=== PATIENT | male | born 1975 | race Caucasian/White ===

== ENCOUNTER 2021-07-30 15:05 | Emergency (ER) | payer OTHER ==
[~2021-07-30] VITALS: Ht 180.3 cm; Wt 120.2 kg
[~2021-07-30 15:05] MED LIST: ALBUAER3 IN; ESCI-34 PO; ESZO1TAB21 PO
[2021-07-30 15:12] VITALS: BP 159/81
[2021-07-30] MEDS ORDERED: SODIUM CHLORIDE 0.9% 1,000 ML IVB ONE (15:30)
[2021-07-30] MEDS ORDERED: ASPirin 81 mg TAB PO ONE (15:30)
[2021-07-30 16:07] LABS: Basophils # (auto) 0.1 10 ^3/uL (0-0.2); Basophils % (auto) 1.3 % (0.0-2.0); Eosinophils # (auto) 0.3 10 ^3/uL (0-0.8); Eosinophils % (auto) 3.2 % (0.0-7.0); Hematocrit 45.4 % (41.0-53.0); Hemoglobin 15.3 g/dL (13.5-17.5); Lymphocytes % (auto) 31.3 % (10.0-50.0); Mean Corpuscular Hemoglobin 30.4 pg (28.0-32.0); Mean Corpuscular Hgb Conc. 33.7 g/dL (32.0-36.0); Mean Corpuscular Volume 90.3 fL (80.0-100.0); Monocytes # (auto) 0.8 10 ^3/uL (0-1.3); Monocytes % (auto) 8.6 % (0.0-12.0); Neutrophils # (auto) 5.4 10 ^3/uL (1.6-8.6); Neutrophils % (auto) 55.6 % (37.0-80.0); Nucleated Red Blood Cells % 0.1 %; Red Blood Cells 5.03 10^6/uL (4.5-5.90); Red Cell Distribution Width 14.4 % (11.8-14.3); White Blood Cell 9.7 10^3/uL (4.4-10.8)
[2021-07-30 16:30] LABS: Albumin 4.1 g/dL (3.4-5.0); BUN/Creatinine Ratio 11.1; Calcium 9.3 mg/dL (8.5-10.1); Magnesium 2.4 mg/dL (1.6-2.6); Potassium 3.8 mmol/L (3.5-5.1)
[2021-07-30 16:33] LABS: Bilirubin, Total 0.4 mg/dL (0.2-1.0); Total Protein 7.4 g/dL (6.4-8.2)
[2021-07-30] MEDS ORDERED: PANTOPRAZOLE 40 MG TAB PO ONE (17:15)
[2021-07-30] MEDS ORDERED: PANT40TA2 PO (17:16)
== END 2021-07-30 19:54 | disposition home or self-care (01) ==
LOC: ER 15:05
DX: R07.89 Other chest pain (principal); K21.9 Gastro-esophageal reflux disease without esophagitis; I10 Essential (primary) hypertension; J45.909 Unspecified asthma, uncomplicated; F17.210 Nicotine dependence, cigarettes, uncomplicated; Z79.899 Other long term (current) drug therapy
CPT/HCPCS: 36415; 71046; 76705; 80053; 83735; 84484; 85025; 93005